=== PATIENT | female | born 1980 | race Asian ===

== ENCOUNTER 2024-03-05 06:26 | Day surgery (SDC) | payer OTHER, SELFPAY | END 2024-03-05 14:47 | disposition home or self-care (01) | LOC: GI 06:26 | PROVIDERS: ATTENDING PHYSICIAN Internal Medicine | DX: Z12.11 Encounter for screening for malignant neoplasm of colon (principal); K62.89 Other specified diseases of anus and rectum; K22.89 Other specified disease of esophagus; K31.89 Other diseases of stomach and duodenum; K21.00 Gastro-esophageal reflux disease with esophagitis, without bleeding; K29.50 Unspecified chronic gastritis without bleeding; Z80.0 Family history of malignant neoplasm of digestive organs | CPT/HCPCS: 43239; G0121; 88305; 88342 ==